=== PATIENT | female | born 1980 | race Caucasian/White ===

== ENCOUNTER 2024-01-07 22:49 | Emergency (ER) | payer MEDICAID, SELFPAY ==
[2024-01-07 22:50] VITALS: BMI 27.8
--- NOTE | 2024-01-07 23:40 | PC.NURSE ---
no answer when called to be triaged
--- NOTE | 2024-01-08 00:28 | PC.NURSE ---
CALLED PATIENT IN LOBBY AND OUTSIDE, NO ANSWER RECEIVED.
--- NOTE | 2024-01-08 00:54 | PC.NURSE ---
CALLED PATIENT IN LOBBY AND OUTSIDE, NO ANSWER RECEIVED.
== END 2024-01-08 00:55 | disposition left against medical advice (07) ==
LOC: SERX 01-08 04:10
PROVIDERS: Emergency Provider Emergency Medicine
DX: Z53.21 Procedure and treatment not carried out due to patient leaving prior to being seen by health care provider (principal)

== ENCOUNTER 2024-09-12 10:47 | Emergency (ER) | payer MEDICAID, SELFPAY ==
[2024-09-12 10:56] VITALS: BP 148/89; PULSE 81; RESP 16; TEMP 36.7; O2SAT 97; BMI 29.7
[2024-09-12] MEDS: DiphenhydrAMINE INJ 50 MG/ML VIAL IM (11:48)
--- NOTE | 2024-09-12 11:53 | PD.EDALLER ---
ED Allergic Reaction RME/HPI General Chief complaint: Allergic Reaction Stated complaint: ALLERGIC REACTION Time Seen by Provider: 09/12/24 11:11 Arrival date/time: 09/12/24 10:47 This is a 43-year-old female that states that she was working on a house and this morning she woke up with a rash to her face arms chest and back. Patient thinks she is might be allergic to something patient denies any trouble breathing. Patient does not remember being exposed to something new. Patient reports history of lupus. Related Data Previous Rx's ?Medication ?Instructions ?Recorded cetirizine 10 mg capsule (Zyrtec) 10 mg PO QDAY PRN allergy symptoms 08/17/19 #30 caps diphenhydramine HCl 25 mg capsule 25 mg PO Q8H PRN allergic symptoms 09/11/20 (Benadryl) #30 caps epinephrine 0.3 mg/0.3 mL See Rx Instructions .Route 09/11/20 injection, auto-injector (EpiPen .COMPLEX PRN hypersensitivity 2-Donell) reaction #2 ea hydrocodone 5 mg-acetaminophen 325 1 tab PO TID PRN pain #15 tabs 05/18/23 mg tablet ibuprofen 800 mg tablet 800 mg PO TID PRN pain #30 tabs 09/08/23 Allergies Allergy/AdvReac Type Severity Reaction Status Date / Time Cephalosporins Allergy Intermediate SWELLING Verified 09/12/24 10:50 codeine Allergy Mild RASH Verified 09/12/24 10:50 sulfamethoxazole Allergy Unknown Verified 09/12/24 10:50 trimethoprim Allergy Unknown Verified 09/12/24 10:50 cephalexin (From Keflex) Allergy Swelling Verified 09/12/24 10:50 of Lip/Tongue/Throat Course Orders Category Date Time Status DiphenhydrAMINE INJ [Benadryl Inj] Med 09/12/24 11:38 Discontinued 50 mg IM X1 ONE Vital Signs Vital signs: Vital Signs Temperature 98.1 F 09/12/24 10:56 Pulse Rate 81 09/12/24 10:56 Respiratory Rate 16 09/12/24 10:56 Blood Pressure 148/89 H 09/12/24 10:56 Pulse Oximetry (%) 97 09/12/24 10:56 Oxygen Delivery Method Room Air 09/12/24 10:56 Allergic Reaction MDM Narrative MDM Narrative:: Benadryl ordered. Patient insist on getting steroids. I let her know that if the rash does not get better then we would order steroids but I wanted to see how Benadryl alone would work. Patient states that she wanted steroids because she also has lupus and usually her lupus is treated with steroids. I explained to patient that I am not treating her for her lupus because it is that is not what she is here. Patient walked out of the emergency room after IM Benadryl given. Ambulatory with steady gait. Patient did not inform staff that she was leaving. Medications / Prescriptions Medication administrations:: Medication Administration History Discontinued Medications Diphenhydramine HCl (Diphenhydramine Inj 50 Mg/Ml Vial) 50 mg IM X1 ONE Stop: 09/12/24 11:39 Last Admin: 09/12/24 11:48 Dose: 50 mg Documented By: LIA Discharge Plan Prescriptions/Referrals Prescriptions/Med Rec: No Action diphenhydramine HCl [Benadryl] 25 mg capsule 25 mg PO Q8H PRN (Reason: allergic symptoms) Qty: 30 0RF epinephrine [EpiPen 2-Donell] 0.3 mg/0.3 mL auto-injector See Rx Instructions .ROUTE .COMPLEX PRN (Reason: hypersensitivity reaction) Qty: 2 0RF Rx Instructions: 0.3 mL subcutaneously as needed Zyrtec 10 mg capsule 10 mg PO QDAY PRN (Reason: allergy symptoms) Qty: 30 0RF hydrocodone-acetaminophen 5-325 mg tablet 1 tab PO TID MDD 3 PRN (Reason: pain) Qty: 15 0RF ibuprofen 800 mg tablet 800 mg PO TID PRN (Reason: pain) Qty: 30 0RF Patient/Caregiver Discharge Instructions Print Language: [place] Citizen
== END 2024-09-12 12:00 | disposition left against medical advice (07) ==
LOC: SERX 11:57
PROVIDERS: Emergency Provider Emergency Medicine
DX: T78.40XA Allergy, unspecified, initial encounter (principal); R21 Rash and other nonspecific skin eruption
CPT/HCPCS: 96372; 99281; J1200

== ENCOUNTER 2024-09-14 07:44 | Emergency (ER) | payer MEDICAID, SELFPAY ==
[2024-09-14 07:47] VITALS: PULSE 75; RESP 18; O2SAT 98; BMI 27.9
[2024-09-14 07:53] VITALS: BP 133/87; PULSE 75; RESP 20; TEMP 36.7; O2SAT 100
--- NOTE | 2024-09-14 07:53 | EDNOTE_ITS ---
ED Allergic Reaction RME/HPI General Chief complaint: Allergic Reaction Stated complaint: ALERGIC REACTION Time Seen by Provider: 09/14/24 07:48 Arrival date/time: 09/14/24 07:44 Limitations: no limitations RME / HPI RME / HPI narrative: DR. TRAN MAIN ED EVALUATION: 43 year old female presents to the Emergency Department [facility] with complaint of allergic reaction with angioedema of the face and lips and diffuse body rash. Rash noted on her upper and lower extremities, chest, and abdomen area. No swelling of the tongue or soft palate. No shortness of breath, cough, or any respiratory distress. Pehospital treatment includes 50 mg of Benadryl given by EMS. Related Data Previous Rx's ?Medication ?Instructions ?Recorded cetirizine 10 mg capsule (Zyrtec) 10 mg PO QDAY PRN al lergy symptoms 08/17/19 #30 caps diphenhydramine HCl 25 mg capsule 25 mg PO Q8H PRN all ergic symptoms 09/11/20 (Benadryl) #30 caps epinephrine 0.3 mg/0.3 mL See Rx Instructions .Route 0 09/11/20 injection, auto-injector (EpiPen .COMPLEX PRN hypersen sitivity 2-Donell) reaction #2 ea hydrocodone 5 mg-acetaminophen 325 1 tab PO TID PRN pa in #15 tabs 05/18/23 mg tablet ibuprofen 800 mg tablet 800 mg PO TID PRN pain #30 t abs 09/08/23 diphenhydramine HCl 25 mg capsule 25 mg PO TID 7 days #21 caps 09/14/24 (Allergy (diphenhydramine)) famotidine 40 mg tablet (Pepcid) 40 mg PO QDAY #7 tabs 09/14/24 prednisone 20 mg tablet 20 mg PO BID 5 days #10 tabs 09/14/24 Allergies Allergy/AdvReac Type Severity Reaction Status Date / Time Cephalosporins Allergy Intermediate SWELLING Verified 09/14/24 07:53 codeine Allergy Mild RASH Verified 09/14/24 07:53 sulfamethoxazole Allergy Unknown Verified 09/14/24 07:53 trimethoprim Allergy Unknown Verified 09/14/24 07:53 cephalexin (From Keflex) Allergy Swelling Verified 09/14/24 07:53 of Lip/Tongue/Throat Sulfa (Sulfonamide Allergy Verified 09/14/24 07:53 Antibiotics) Review of Systems Review of Systems Systems Reviewed: All systems reviewed, normal except as documented Narrative Review of Systems: GEN: No fever, no chills, no weight loss EYES: No discharge, no visual changes, no pain HEENT: No ear pain, no congestion, no sore throat PULM: No shortness of breath, no cough, no congestion CV: No chest pain, no dyspnea on exertion, no palpitations GI: No nausea, no vomiting, no diarrhea, no pain, no constipation : No frequency, no urgency and no dysuria MUSC/SKEL: No joint pain, no back pain SKIN: + angioedema of the face and lips, + diffuse body rash (noted on her upper and lower extremities, chest, and abdomen area) PSYCH: No hallucinations, no depression HEME/LYMPH: No easy bleeding or bruising tendencies NEURO: No weakness, no headache Past Medical History Social History SMOKING STATUS: Light (< 1 pack/day) SUBSTANCE USE: does not use ALCOHOL: Never ED Exam General Limitations: Present no limitations General appearance: Present alert and in no apparent distress Head Head exam: Present atraumatic Expanded Head Exam Head image: 2 1. angioedema of the face and lips Eye Eye exam: Present normal appearance, PERRL and EOMI ENT ENT exam: Present normal exam, normal oropharynx, mucous membranes moist and other (No swelling of the tongue or soft palate.) Neck Neck exam: Present normal inspection, full ROM and trachea midline Chest Chest inspection: Present normal inspection and symmetric chest wall rise Respiratory Respiratory exam: Present normal lung sounds bilaterally Cardiovascular Cardiovascular exam: Present regular rate, normal rhythm and normal heart sounds Abdominal Exam Abdominal exam: Present soft and normal bowel sounds Extremities Exam Extremities exam: Present normal inspection and full ROM Back Exam Back exam: Present normal inspection and full ROM Neurological Exam Neurological exam: Present alert, oriented X3 and CN II-XII intact Psychiatric Psychiatric exam: Present normal affect and normal mood Skin Skin exam: Present warm, dry and rash (diffuse body rash; noted on her upper and lower extremities, chest, and abdomen area) Course Quality Measures none Orders Category Date Time Status Discharge Routine Discharge 09/14/24 09:59 Active CBC Stat Lab 09/14/24 08:07 Completed CMP [Comprehensive Metabolic Panel] Stat Lab 09/14/24 08:07 Completed HCG,Qualitative Serum Stat Lab 09/14/24 08:07 Completed Famotidine [Pepcid] Med 09/14/24 07:53 Discontinued 40 mg PO X1 ONE MethylPREDNISolone.* [SoluMEDROL Inj] Med 09/14/24 07:53 Discontinued 125 mg IM X1 ONE Reevaluation(s) Reevaluation #1: Patient doing better. Has urticaria and angioedema. Plan to give prednisode, pepsin, and benadryl and discharge the patient. Patient remains clinically stable throughout the emergency department visit. Re- assessment at the time of disposition demonstrates that the patient is in no acute distress. We reviewed all the results, analysis, and treatment plans. Patient is amenable to discharge. Strict return precautions were outlined. Patient was discharged in stable condition. Time: 10:00 Vital Signs Vital signs: Vital Signs Temperature 98.1 F 09/14/24 07:53 Pulse Rate 75 09/14/24 07:53 Respiratory Rate 20 09/14/24 07:53 Blood Pressure 133/87 H 09/14/24 07:53 Pulse Oximetry (%) 100 09/14/24 07:53 Oxygen Delivery Method Room Air 09/14/24 07:53 Allergic Reaction MDM Narrative MDM Narrative:: I, Maggie Louis am scribing for and in the presence of Dr. Tran. Patient's symptoms are related to urticaria and edema There is no involvement of upper airway and lower airways Patient had no wheezing The symptoms are only limited to the lips and the skin Patient responded well to the regimen of prednisone and Pepcid and Benadryl Patient will be discharged home on the same regimen for 5 days Patient advised to follow-up with her primary care physician and get referred to her publicity director if this keeps her Recurrence It is difficult to pinpoint the cause of the allergy could be specific or nonspecific This has to be addressed by the crew leader Patient was discharged good condition Patient data External records reviewed:: EMS form Clinical information provided by:: patient and EMS Social determinants that could affect healthcare access:: other (specify) (smoker) Patient has the following chronic illnesses:: No known past medical history. Allergies to cephalosporins, codeine, sulfamethoxazole, trimethoprim, cephalexin, and sulfa (abx). How is presenting disease/condition affected by chronic disease/condition?: no chronic disease Evaluation data The following diagnostics were reviewed and interpreted by me:: lab results Lab and/or radiology exams considered but not ordered:: none Interpretation Summary: At 10 AM the patient doing better. Has urticaria and angioedema. Plan to give prednisode, pepsin, and benadryl and discharge the patient. Medications / Prescriptions Medications or Prescriptions considered but not ordered:: none Medication administrations:: Medication Administration History Discontinued Medications Famotidine (Famotidine 20 Mg Tablet) 40 mg PO X1 ONE Stop: 09/14/24 07:54 Last Admin: 09/14/24 08:04 Dose: 40 mg Documented By: Methylprednisolone Sodium Succinate (Methylprednisolone Sod Succ 62.5 Mg/Ml 2ml Vial) 125 mg IM X1 ONE Stop: 09/14/24 07:54 Last Admin: 09/14/24 08:07 Dose: 125 mg Documented By: see above Consultations Consultation(s) initiated? (list below): No Diagnosis Differential Diagnosis allergic reaction: allergic reaction, angioedema and urticaria Most likely diagnosis given after review of the tests above:: Urticaria Angioedema Admission Indicated Admission indicated?: not indicated Admission Request Was there a request for admission?: No Disposition Plan Disposition Plan: Discharge Discharge Attestation Discharge Attestation: The patient and all family members were given an opportunity to ask questions and understood the discharge instructions. Discharge instructions specifically effects, indications for sooner follow up or return to the emergency department, and the expected course of current diagnosis. Patient condition: Stable Discharge Plan Plan Patient Disposition: HOME (Self Care) Patient condition on transfer: Stable Prescriptions/Referrals Prescriptions/Med Rec: New prednisone 20 mg tablet 20 mg PO BID 5 Days Qty: 10 0RF Taper: Prednisone Taper 20 mg DAILY for 2 Days and 0 Hour 10 mg DAILY for 2 Days and 0 Hour 5 mg DAILY for 7 Days and 0 Hour diphenhydramine HCl [Allergy (diphenhydramine)] 25 mg capsule 25 mg PO TID 7 Days Qty: 21 0RF famotidine [Pepcid] 40 mg tablet 40 mg PO QDAY Qty: 7 0RF No Action diphenhydramine HCl [Benadryl] 25 mg capsule 25 mg PO Q8H PRN (Reason: allergic symptoms) Qty: 30 0RF epinephrine [EpiPen 2-Donell] 0.3 mg/0.3 mL auto-injector See Rx Instructions .ROUTE .COMPLEX PRN (Reason: hypersensitivity reaction) Qty: 2 0RF Rx Instructions: 0.3 mL subcutaneously as needed Zyrtec 10 mg capsule 10 mg PO QDAY PRN (Reason: allergy symptoms) Qty: 30 0RF hydrocodone-acetaminophen 5-325 mg tablet 1 tab PO TID MDD 3 PRN (Reason: pain) Qty: 15 0RF ibuprofen 800 mg tablet 800 mg PO TID PRN (Reason: pain) Qty: 30 0RF Referrals: No Primary/Family,Physician [Primary Care Provider] - In 1 week Problem List Clinical Impression: Urticaria, Angioedema Patient/Caregiver Discharge Instructions Discharge Activity: activity as tolerated Education Materials: ED Angioedema, ED Hives (Adult) Print Language: Micronesian Stand Alone Forms: Esther Award Info., Patient Portal Info Letter
[2024-09-14] MEDS: FAMOTIDINE 20 MG TABLET 40 MG PO (08:04)
[2024-09-14] MEDS: MethylPREDNISolone SOD SUCC 62.5 MG/ML 2ML VIAL 125 MG IM (08:07)
[2024-09-14 08:31] LABS: Alanine Aminotransferase 17 U/L (10-49); Albumin, Serum 4.3 gm/dL (3.5-5.0); Albumin/Globulin Ratio 1.7 (1.2-2.2); Alkaline Phosphatase 104 U/L (46-116); Anion Gap 7 (7-16); Aspartate Amino Transferase 20 U/L (0-34); BUN/Creatinine Ratio 20 Ratio (12-20); Bilirubin,Total 0.3 mg/dL (0.3-1.2); Blood Urea Nitrogen 16 mg/dL (9-23); Calcium 8.8 mg/dL (8.3-10.6); Calcium (Corrected) 8.8 mg/dL (8.5-10.1); Carbon Dioxide 26.2 mMol/L (20.0-31.0); Chloride 108 mMol/L (98-107); Creatinine (Component) 0.8 mg/dL (0.6-1.3); Estimated Creatinine Clearance 88.4 mL/min (>60); Globulin 2.5 gm/dL (2.3-3.5); Glucose 106 mg/dL (74-106); Osmolality,Calculated 282 (275-295); Sodium 141 mMol/L (136-145); Total Protein 6.8 gm/dL (5.7-8.2); eGFR > 60 See Note
[2024-09-14 08:34] LABS: Basophils # (Auto) 0.1 Thou/mm3 (0.0-0.2); Basophils % (Auto) 1 % (0-2.5); Eosinophils # (Auto) 0.3 Thou/mm3 (0.0-0.5); Eosinophils % (Auto) 7 % (0-10); Hematocrit 38.9 % (36.0-46.0); Hemoglobin 13.2 g/dL (12.0-16.0); Immature Granulocytes % (Auto) 0 % (0-0); Lymphocytes # (Auto) 1.6 Thou/mm3 (1.0-4.8); Lymphocytes % (Auto) 34 % (10-50); Mean Corpuscular HGB Conc 33.9 g/dl (31.0-37.0); Mean Corpuscular Hemoglobin 28.8 pg (25.0-35.0); Mean Corpuscular Volume 85 fL (80-100); Monocytes # (Auto) 0.5 Thou/mm3 (0.0-0.8); Monocytes % (Auto) 10 % (0-12); Neutrophils # (Auto) 2.2 Thou/mm3 (1.8-7.7); Neutrophils % (Auto) 48 % (37-80); Nucleated Red Blood Cell % 0 /100 WBC (0); Platelet Count 199 Thou/mm3 (140-440); RDW Standard Deviation 39.7 fL (36.4-46.3); Red Blood Count 4.59 Miln/mm3 (4.00-5.20); White Blood Count 4.6 Thou/mm3 (3.6-11.0)
[2024-09-14 08:41] LABS: HCG,Qualitative Serum Negative
== END 2024-09-14 10:26 | disposition home or self-care (01) ==
PROVIDERS: Emergency Provider Emergency Medicine
DX: T78.3XXA Angioneurotic edema, initial encounter (principal)
CPT/HCPCS: 36415; 80053; 84703; 85025; 96372; 99283; J2919; A9270